=== PATIENT | female | born 1985 | race Caucasian/White ===

== ENCOUNTER 2021-09-12 14:05 | Outpatient (CLI) | payer OTHER | END 2021-09-12 15:53 | disposition home or self-care (01) | LOC: OPSV 14:05 → GENOP 14:05 | DX: O99.891 Other specified diseases and conditions complicating pregnancy (principal); N89.8 Other specified noninflammatory disorders of vagina; M54.9 Dorsalgia, unspecified; R10.30 Lower abdominal pain, unspecified; R25.2 Cramp and spasm; Z3A.38 38 weeks gestation of pregnancy | CPT/HCPCS: 81001; 83518; G0463 ==

== ENCOUNTER 2021-09-22 16:31 | Inpatient (IN) | payer BC ==
[~2021-09-22] VITALS: Ht 170.2 cm; Wt 91.6 kg
[2021-09-22 17:16] LABS: HEMOGLOBIN 11.5 gm/dl (12.3-15.3); RED BLOOD COUNT 3.97 M/UL (4.00-5.10); WHITE BLOOD COUNT 8.4 K/UL (4.5-11.0)
[2021-09-22] MEDS ORDERED: PROBIOTIC1 EAC1 PO (18:08)
[2021-09-22] MEDS ORDERED: PRENATAL VITAM1 EAC3 PO (18:08)
[2021-09-24] MEDS ORDERED: DOCUSATE SODIU100 MG PO (14:42)
[2021-09-24] MEDS ORDERED: IBUPROFEN600 MG PO (14:42)
[2021-09-24] MEDS ORDERED: HYDROCODON-ACE1 EAC4 PO (14:42)
[2021-09-25 06:54] LABS: HEMOGLOBIN 9.6 gm/dl (12.3-15.3)
[2021-09-26] MEDS ORDERED: HYDROCODON-ACE1 EAC5 PO (16:44)
== END 2021-09-26 14:59 | disposition home or self-care (01) | DRG 786 ==
LOC: GENOP 16:31 → OB 16:55
PROVIDERS: Obstetrics & Gynecology; ADMIT Obstetrics & Gynecology
PROC: 3E033VJ Introduction of Other Hormone into Peripheral Vein, Percutaneous Approach (ICD-10-PCS; 2021-09-24)
PROC: 10H07YZ Insertion of Other Device into Products of Conception, Via Natural or Artificial Opening (ICD-10-PCS; 2021-09-24)
PROC: 4A1H7CZ Monitoring of Products of Conception, Cardiac Rate, Via Natural or Artificial Opening (ICD-10-PCS; 2021-09-24)
PROC: 10H073Z Insertion of Monitoring Electrode into Products of Conception, Via Natural or Artificial Opening (ICD-10-PCS; 2021-09-24)
PROC: 10D00Z1 Extraction of Products of Conception, Low, Open Approach (ICD-10-PCS; principal; 2021-09-24 15:16)
DX: O26.62 Liver and biliary tract disorders in childbirth (principal); K83.1 Obstruction of bile duct; O62.1 Secondary uterine inertia; Z20.822 Contact with and (suspected) exposure to COVID-19; Z3A.39 39 weeks gestation of pregnancy; Z82.49 Family history of ischemic heart disease and other diseases of the circulatory system; Z37.0 Single live birth
CPT/HCPCS: 36415; 81001; 82800; 85014; 85018; 85025; 90715; C9113; G0378; J0690; J1170; J2210; J2250; J2274; J2370; J2405; J2590; J7120; U0002

== ENCOUNTER 2021-10-12 06:38 | Day surgery (SDC) | payer BC, OTHER ==
[~2021-10-12] VITALS: Ht 170.2 cm; Wt 83.0 kg
[~2021-10-12 06:38] MED LIST: DOCUSATE SODIU100 MG PO; HYDROCODON-ACE1 EAC4 PO; HYDROCODON-ACE1 EAC5 PO; IBUPROFEN600 MG PO; PRENATAL VITAM1 EAC3 PO; PROBIOTIC1 EAC1 PO
[2021-10-12 07:20] LABS: HEMOGLOBIN 11.6 gm/dl (12.3-15.3); RED BLOOD COUNT 3.99 M/UL (4.00-5.10); WHITE BLOOD COUNT 6.1 K/UL (4.5-11.0)
[2021-10-12] MEDS ORDERED: DOCUSATE SODIU100 MG PO (11:54)
--- NOTE | 2021-10-12 14:57 | NUR ---
@[id number] Frausto of patient condition as follows patient lizzeth po intake, denies n/v , has not ask for pain medicine urinated with scant amount of dark colored blood and ambulates with standby assist. received order
== END 2021-10-12 18:06 | disposition home or self-care (01) ==
LOC: OR 06:38 → M/S 11:06 → OR 18:06
PROVIDERS: Obstetrics & Gynecology
DX: K43.2 Incisional hernia without obstruction or gangrene (principal); G89.18 Other acute postprocedural pain; R10.9 Unspecified abdominal pain; O90.0 Disruption of cesarean delivery wound; D49.2 Neoplasm of unspecified behavior of bone, soft tissue, and skin; Z20.822 Contact with and (suspected) exposure to COVID-19; Z98.891 History of uterine scar from previous surgery
CPT/HCPCS: 81001; 84703; 85025; J0690; J1100; J1170; J1885; J2001; J2250; J2405; J2704; J2710; J2795; J3010; J7120; U0002